=== PATIENT | male | born 1945 | race Caucasian/White ===

== ENCOUNTER → 2019-02-25 | Outpatient (CLI) | payer MEDICARE | END | disposition home or self-care (01) | LOC: LABWHC1 09:02 | PROVIDERS: ATTEND Urology | DX: C61 Malignant neoplasm of prostate (principal) | CPT/HCPCS: 36415; 84153 ==

== ENCOUNTER 2021-09-17 03:27 | Inpatient (IN) | payer MEDICARE ==
[2021-09-17] MEDS ORDERED: IPRATROPIUM-ALBUTEROL 3 ML NEB INHALATION STA (03:58)
--- NOTE | 2021-09-17 04:04 | ED ---
SOB HPI - General Chief Complaint: Shortness of Breath Stated Complaint: Fluid overload, Respiratory Distress Time Seen by Provider: 09/17/21 03:57 Source: EMS Mode of arrival: EMS - Related Data Home Medications Medication Instructions Recorded Confirmed Aspirin EC [Ecotrin] 81 mg PO DAILY 04/11/14 04/11/14 Metoclopramide [Reglan] 10 mg PO BID 04/11/14 04/14/14 Ranitidine HCl [Zantac] 150 mg PO BID 04/11/14 04/14/14 Viagra(Unknown Dose) 1 tab PO DIRECTED 04/11/14 04/11/14 Previous Rx's Medication Instructions Recorded Pantoprazole Sodium [Protonix] 40 mg PO DAILY #30 tablet. 04/14/14 Allergies Allergy/AdvReac Type Severity Reaction Status Date / Time No Known Allergies Allergy Verified 04/11/14 13:56 Review of Systems ROS Statement: Those systems with pertinent positive or pertinent negative responses have been documented in the HPI. ROS Other: All systems not noted in ROS Statement are negative. Past Medical History Past Medical History: Cancer, GERD/Reflux Additional Past Medical History / Comment(s): HX OF PROSTATE CANCER History of Any Multi-Drug Resistant Organisms: None Reported Past Surgical History: Prostate Surgery Past Anesthesia/Blood Transfusion Reactions: No Reported Reaction Past Psychological History: No Psychological Hx Reported Smoking Status: Never smoker Past Alcohol Use History: None Reported Past Drug Use History: None Reported Course Vital Signs 09/17/21 09/17/21 09/17/21 03:32 03:34 03:35 Temperature 99 F Pulse Rate 130 H Respiratory 27 H Rate Blood Pressure 179/111 O2 Sat by Pulse 97 Oximetry Fraction of 100 80 Inspired Oxygen (FIO2) 09/17/21 09/17/21 09/17/21 03:47 04:20 04:29 Temperature Pulse Rate 112 H 112 H Respiratory Rate Blood Pressure O2 Sat by Pulse Oximetry Fraction of 60 Inspired Oxygen (FIO2) 09/17/21 05:01 Temperature Pulse Rate 110 H Respiratory 20 Rate Blood Pressure 126/80 O2 Sat by Pulse 98 Oximetry Fraction of Inspired Oxygen (FIO2) Medical Decision Making - Lab Data Result diagrams: 09/17/21 03:43 09/17/21 03:43 Lab Results 09/17/21 09/17/21 09/17/21 Range/Units 03:43 03:43 03:43 WBC 9.3 (3.8-10.6) k/uL RBC 5.36 (4.30-5.90) m/uL Hgb 18.0 H (13.0-17.5) gm/dL Hct 53.4 H (39.0-53.0) % MCV 99.5 (80.0-100.0) fL MCH 33.6 (25.0-35.0) pg MCHC 33.8 (31.0-37.0) g/dL RDW 13.5 (11.5-15.5) % Plt Count 151 (150-450) k/uL MPV 11.2 Neutrophils % 36 % Lymphocytes % 54 % Monocytes % 5 % Eosinophils % 1 % Basophils % 1 % Neutrophils # 3.4 (1.3-7.7) k/uL Lymphocytes # 5.0 H (1.0-4.8) k/uL Monocytes # 0.4 (0-1.0) k/uL Eosinophils # 0.1 (0-0.7) k/uL Basophils # 0.1 (0-0.2) k/uL Sodium 137 (137-145) mmol/L Potassium 5.1 (3.5-5.1) mmol/L Chloride 106 (98-107) mmol/L Carbon Dioxide 19 L (22-30) mmol/L Anion Gap 12 mmol/L BUN 19 (9-20) mg/dL Creatinine 1.10 (0.66-1.25) mg/dL Est GFR (CKD-EPI)AfAm 75 (>60 ml/min/1.73 sqM) Est GFR (CKD-EPI)NonAf 65 (>60 ml/min/1.73 sqM) Glucose 264 H (74-99) mg/dL Plasma Lactic Acid Chidi 3.2 H* (0.7-2.0) mmol/L Calcium 8.8 (8.4-10.2) mg/dL Total Bilirubin 1.3 (0.2-1.3) mg/dL AST 48 (17-59) U/L ALT 28 (4-49) U/L Alkaline Phosphatase 64 (38-126) U/L Troponin I (0.000-0.034) ng/mL NT-Pro-B Natriuret Pep pg/mL Total Protein 8.3 H (6.3-8.2) g/dL Albumin 4.7 (3.5-5.0) g/dL 09/17/21 09/17/21 Range/Units 03:43 03:43 WBC (3.8-10.6) k/uL RBC (4.30-5.90) m/uL Hgb (13.0-17.5) gm/dL Hct (39.0-53.0) % MCV (80.0-100.0) fL MCH (25.0-35.0) pg MCHC (31.0-37.0) g/dL RDW (11.5-15.5) % Plt Count (150-450) k/uL MPV Neutrophils % % Lymphocytes % % Monocytes % % Eosinophils % % Basophils % % Neutrophils # (1.3-7.7) k/uL Lymphocytes # (1.0-4.8) k/uL Monocytes # (0-1.0) k/uL Eosinophils # (0-0.7) k/uL Basophils # (0-0.2) k/uL Sodium (137-145) mmol/L Potassium (3.5-5.1) mmol/L Chloride (98-107) mmol/L Carbon Dioxide (22-30) mmol/L Anion Gap mmol/L BUN (9-20) mg/dL Creatinine (0.66-1.25) mg/dL Est GFR (CKD-EPI)AfAm (>60 ml/min/1.73 sqM) Est GFR (CKD-EPI)NonAf (>60 ml/min/1.73 sqM) Glucose (74-99) mg/dL Plasma Lactic Acid Chidi (0.7-2.0) mmol/L Calcium (8.4-10.2) mg/dL Total Bilirubin (0.2-1.3) mg/dL AST (17-59) U/L ALT (4-49) U/L Alkaline Phosphatase (38-126) U/L Troponin I 0.025 (0.000-0.034) ng/mL NT-Pro-B Natriuret Pep 667 pg/mL Total Protein (6.3-8.2) g/dL Albumin (3.5-5.0) g/dL - EKG Data -: EKG Interpreted by Me (EKG is sinus tachycardia 132 GA 136 QRS 109 QTC 399) Disposition Clinical Impression: Acute exacerbation of chronic obstructive pulmonary disease, Acute respiratory failure, Acute respiratory distress syndrome in adult, Acute pulmonary edema, Congestive heart failure, Hypoxia Disposition: ADMITTED IP TO THIS HOSP Condition: Serious Is patient prescribed a controlled substance at d/c from ED?: No Referrals: None,Stated [REFERRING] - 1-2 days
[2021-09-17 04:11] LABS: Calcium 8.8 mg/dL (8.4-10.2)
[2021-09-17 04:16] LABS: Potassium 5.1 mmol/L (3.5-5.1); Total Protein 8.3 g/dL (6.3-8.2)
[2021-09-17 04:17] LABS: Albumin 4.7 g/dL (3.5-5.0); Total Bilirubin 1.3 mg/dL (0.2-1.3)
[2021-09-17 04:23] LABS: Basophils # (A) 0.1 k/uL (0-0.2); Basophils % (A) 1 %; Eosinophils # (A) 0.1 k/uL (0-0.7); Eosinophils % (A) 1 %; HCT 53.4 % (39.0-53.0); Lymphocytes % (A) 54 %; MCH 33.6 pg (25.0-35.0); MCHC 33.8 g/dL (31.0-37.0); MCV 99.5 fL (80.0-100.0); Mean Platelet Volume 11.2; Monocytes # (A) 0.4 k/uL (0-1.0); Monocytes % (A) 5 %; Neutrophils # (A) 3.4 k/uL (1.3-7.7); Neutrophils % (A) 36 %; Platelet Count 151 k/uL (150-450); RBC 5.36 m/uL (4.30-5.90); RDW 13.5 % (11.5-15.5); WBC 9.3 k/uL (3.8-10.6)
--- NOTE | 2021-09-17 04:42 | XR ---
EXAMINATION TYPE: XR chest 1V portable DATE OF EXAM: 09/17/2021 COMPARISON: NONE HISTORY: Short of breath TECHNIQUE: Renal view FINDINGS: Heart is enlarged. There is moderate pulmonary airspace edema. No definite pleural effusion . There are chest leads. Bony thorax is intact. IMPRESSION: There is moderate pulmonary airspace edema which could be RDS or acute heart failure.
[2021-09-17] MEDS ORDERED: ASPIRIN 325 MG TAB PO STA (05:03)
[2021-09-17] MEDS ORDERED: FUROSEMIDE 10 MG/ML 4 ML VIAL IV SCH (05:15)
[2021-09-17 05:19] LABS: Magnesium 1.8 mg/dL (1.6-2.3); Phosphorus 6.6 mg/dL (2.5-4.5)
[2021-09-17] MEDS ORDERED: IPRATROPIUM-ALBUTEROL 3 ML NEB INHALATION PRN (07:00)
--- NOTE | 2021-09-17 07:02 | P.HPIM ---
History of Present Illness H&P Date: 09/17/21 The patient is a 76-year-old male with no known PMH who presented to the emergency room with complaints of sudden onset of shortness of breath. The patient is a Persian speaker with his son at the bedside serving as an customer assistance associate. Patient reports that he was sleeping soundly and was woken up sudd enly at around midnight with shortness of breath, which gradually worsened over the next hour or 2. Patient reports developing diaphoresis and shortness of breath. Denied experiencing chest discomfort, palpitations, nausea, dizziness. Denied any prior history of such symptoms. Denied a history of CHF or COPD. Reported feeling better shortly after arrival to the emergency room and now feels significantly improved albeit not at his baseline as of yet. Denied experiencing cough, fever, chills, abdominal pain, diarrhea. Reports following up with his PMD on a regular basis every 6 months to a year. EKG in the emergency room reveals sinus tachycardia at 132 bpm with a poor baseline. Chest x-ray revealed pulmonary edema. Laboratory evaluation was remarkable for a proBNP of 666, troponin 0.025, lactic acid 3.2, glucose 264, and CO2 19. Patient was tachycardic and tachypneic upon arrival to the emergency room with BP 179/111, respiratory rate 27, pulse 130, SpO2 97% on room air, and temp 99F. The patient's SpO2 acutely dropped after arrival to 60% requiring BiPAP. At time of evaluation, the patient had been transitioned to nasal cannula oxygen. Review of systems: Pertinent positives and negatives as discussed in HPI, a complete review of systems was performed and all other systems are negative. Physical examination: General: non toxic, no distress, appears at stated age, obese Derm: no unusual rashes/lesions, warm Head: atraumatic, normocephalic, symmetric Eyes: EOMI, no lid lag, anicteric sclera, pupils equal round reactive to light ENT: Nose and ears atraumatic Neck: No cervical lymphadenopathy, trachea midline, supple Mouth: no lip lesion, mucus membranes moist Cardiovascular: S1S2 reg, no murmur, positive dorsalis pedis pulse bilateral, no edema Lungs: Bilateral rales to mid lung sher, no accessory muscle use Abdominal: soft, nontender to palpation, no guarding Ext: muscle strength 5 out of 5 in all 4 extremities grossly, no gross muscle atrophy, no contractures, Neuro: CN II-XI grossly intact, no gross focal neuro deficits Psych: Alert, oriented, appropriate affect Assessment/plan Acute hypoxic respiratory failure, suspected secondary to CHF exacerbation newly diagnosed -Obtain echocardiogram -Continue with Lasix -Cardiac monitoring -Cardiology consult -Monitor electrolytes daily Lactic acidosis -Monitor for resolution Hyperglycemia -Check A1c DVT prophylaxis -Heparin subcu The patient is admitted with an anticipated greater than 2 midnight stay for evaluation of CHF exacerbation. CODE STATUS: Full Code Discussed with: Patient Anticipated discharge date: 09/[address]: Home Past Medical History Past Medical History: Cancer, GERD/Reflux Additional Past Medical History / Comment(s): HX OF PROSTATE CANCER History of Any Multi-Drug Resistant Organisms: None Reported Past Surgical History: Prostate Surgery Past Anesthesia/Blood Transfusion Reactions: No Reported Reaction Past Psychological History: No Psychological Hx Reported Smoking Status: Never smoker Past Alcohol Use History: None Reported Past Drug Use History: None Reported - Past Family History Mother Family Medical History: Hypertension Medications and Allergies Home Medications Medication Instructions Recorded Confirmed Type Aspirin EC [Ecotrin] 81 mg PO DAILY 04/11/14 04/11/14 History Metoclopramide [Reglan] 10 mg PO BID 04/11/14 04/14/14 History Ranitidine HCl [Zantac] 150 mg PO BID 04/11/14 04/14/14 History Viagra(Unknown Dose) 1 tab PO DIRECTED 04/11/14 04/11/14 History Pantoprazole Sodium [Protonix] 40 mg PO DAILY #30 tablet. 04/14/14 Rx Allergies Allergy/AdvReac Type Severity Reaction Status Date / Time No Known Allergies Allergy Verified 04/11/14 13:56 Physical Exam Vitals: Vital Signs Temp Pulse Resp BP Pulse Ox FiO2 09/17/21 05:01 110 H 20 126/80 98 09/17/21 04:29 112 H 09/17/21 04:20 112 H 09/17/21 03:47 60 09/17/21 03:35 99 F 130 H 27 H 179/111 97 09/17/21 03:34 80 09/17/21 03:32 100 Intake and Output 09/16/21 09/16/21 09/17/21 14:59 22:59 06:59 Other: Weight 90.718 kg Results CBC & Chem 7: 09/17/21 03:43 07/18/22 03:43 Labs: Abnormal Lab Results - Last 24 Hours (Table) 09/17/21 09/17/21 09/17/21 Range/Units 03:43 03:43 03:43 Hgb 18.0 H (13.0-17.5) gm/dL Hct 53.4 H (39.0-53.0) % Lymphocytes # 5.0 H (1.0-4.8) k/uL Carbon Dioxide 19 L (22-30) mmol/L Glucose 264 H (74-99) mg/dL Plasma Lactic Acid Chidi 3.2 H* (0.7-2.0) mmol/L Phosphorus (2.5-4.5) mg/dL Total Protein 8.3 H (6.3-8.2) g/dL 09/17/21 Range/Units 04:06 Hgb (13.0-17.5) gm/dL Hct (39.0-53.0) % Lymphocytes # (1.0-4.8) k/uL Carbon Dioxide (22-30) mmol/L Glucose (74-99) mg/dL Plasma Lactic Acid Chidi (0.7-2.0) mmol/L Phosphorus 6.6 H (2.5-4.5) mg/dL Total Protein (6.3-8.2) g/dL
[2021-09-17] MEDS ORDERED: HEPARIN SODIUM,PORCINE/PF 5,000 UNIT/0.5 ML SYRINGE SQ SCH (08:00)
[2021-09-17] MEDS ORDERED: IPRATROPIUM-ALBUTEROL 3 ML NEB INHALATION SCH (08:00)
[2021-09-17] MEDS: IPRATROPIUM-ALBUTEROL 3 ML NEB INHALATION SCH ×4 (08:07→21:10)
[2021-09-17] MEDS ORDERED: HEPARIN SODIUM 1,000 UN/ML (10ML VL) IV PRN (10:25)
[2021-09-17] MEDS ORDERED: HEPARIN SODIUM 1,000 UN/ML (10ML VL) IV ONE (10:25)
[2021-09-17 10:57] LABS: Basophils % (A) 0 %; Eosinophils % (A) 0 %; HCT 53.1 % (39.0-53.0); Lymphocytes # (A) 0.6 k/uL (1.0-4.8); Lymphocytes % (A) 8 %; MCH 32.1 pg (25.0-35.0); MCHC 32.1 g/dL (31.0-37.0); MCV 100.2 fL (80.0-100.0); Mean Platelet Volume 8.5; Monocytes # (A) 0.1 k/uL (0-1.0); Monocytes % (A) 1 %; Neutrophils # (A) 6.8 k/uL (1.3-7.7); Neutrophils % (A) 89 %; Platelet Count 170 k/uL (150-450); RDW 12.8 % (11.5-15.5); WBC 7.7 k/uL (3.8-10.6)
[2021-09-17 11:12] LABS: INR 1.1 (<1.2); Prothrombin Time 11.6 sec (9.0-12.0)
[2021-09-17 11:15] LABS: Partial Thromboplastin Time 21.4 sec (22.0-30.0)
[2021-09-17] MEDS: HEPARIN SOD,PORK IN 0.45% NACL 25,000 UNIT in 0.45% NACL 1 250ML.BAG IV SCH (11:19)
[2021-09-17] MEDS: LOSARTAN 25 MG TAB PO SCH (11:20)
[2021-09-17] MEDS: carvediloL 3.125 MG TAB PO SCH ×2 (11:20→18:00)
[2021-09-17] MEDS ORDERED: NITROGLYCERIN SL TABS 0.4 MG TAB SUBLINGUAL PRN (11:59)
[2021-09-17] MEDS ORDERED: ALPRAZolam 0.5 MG TAB PO PRN (11:59)
[2021-09-17] MEDS ORDERED: ALPRAZolam 0.25 MG TAB PO PRN (11:59)
[2021-09-17 12:57] LABS: Glucose,Whole Blood 221 mg/dL (70-110)
--- NOTE | 2021-09-17 12:59 | P.CRDCN ---
History of Present Illness History of present illness: HISTORY OF PRESENT ILLNESS: This is a 76-year-old male with no signifcant past medical history. Patient does not follow with a service and repair supervisor. We have been asked to see the patient in consultation for CHF. Patient examined at the bedside. Patient speaks Egyptian. His family is at the bedside translating for the patient. Patient apparently woke up at 11pm last night with shortness of breath, cough, and diaphoresis. The patient apparently tried to drink some water and relax but his symptoms got worse so he called EMS. The patient was started on IV lasix. He states his symptoms are improved at the time of examination. He currently denies chest pain or pressure. * EKG reveals sinus tachycardia with no signs of acute ischemia * Chest xray moderate pulmonary airspace edema which could be RDS or acute heart failure * Laboratory data: WBC 7.7. Hemoglobin 17. Platelet count 170. Sodium 137. Potassium 5.1. BUN 19. Creatinine 1.10. Lactic acid 4.2. Repeat 5.3. Troponin 0.025. 0.283. 0.574. * Current home cardiac medications include aspirin 81 mg daily REVIEW OF SYSTEMS: At the time of my exam: CONSTITUTIONAL: Denies fever or chills. HEENT: Denies blurred vision, vision changes, or eye pain. Denies hemoptysis CARDIOVASCULAR: Denies chest pain. Denies orthopnea. Denies PND. Denies palpitations RESPIRATORY: Denies shortness of breath. GASTROINTESTINAL: Denies abdominal pain. Denies nausea or vomiting. HEMATOLOGIC: Denies bleeding disorders. GENITOURINARY: Denies any blood in urine. SKIN: Denies pruitis. Denies rash. PHYSICAL EXAM: VITAL SIGNS: Reviewed. GENERAL: Well-developed in no acute distress. HEENT: Head is normocephalic. Pupils are equal, round. Sclerae anicteric. Mucous membranes of the mouth are moist. Neck supple. No JVD or thyromegaly LUNGS: Respirations even and unlabored. Lungs diminished to auscultation bilaterally. HEART: Regular rate and rhythm. S1 and S2 heard. ABDOMEN: Soft. Nondistended. Nontender. EXTREMITIES: Normal range of motion. No clubbing or cyanosis. Peripheral pulses intact. No lower extremity edema NEUROLOGIC: Awake and alert. Oriented x 3. ASSESSMENT: Non-STEMI Acute heart failure, type unknown, echo pending Lactic acidosis Hyperglycemia, rule out diabetes Former nicotine dependence PLAN: Obtain 2D echo to assess cardiac structure and function Continue IV lasix. Decrease dosing to Q12 hours Add aspirin 81 mg daily Add atorvastatin 80 mg at night Add carvedilol 3.125 mg twice a day Add losartan 25 mg daily Begin IV heparin Patient to undergo cardiac cath tomorrow with Dr. Mitchell Further recommendations pending patient course Nurse practitioner note has been reviewed by physician. Signing provider agrees with the documented findings, assessment, and plan of care. Past Medical History Past Medical History: Cancer, GERD/Reflux Additional Past Medical History / Comment(s): HX OF PROSTATE CANCER History of Any Multi-Drug Resistant Organisms: None Reported Past Surgical History: Prostate Surgery Past Anesthesia/Blood Transfusion Reactions: No Reported Reaction Past Psychological History: No Psychological Hx Reported Smoking Status: Never smoker Past Alcohol Use History: None Reported Past Drug Use History: None Reported - Past Family History Mother Family Medical History: Hypertension Medications and Allergies Home Medications Medication Instructions Recorded Confirmed Type Aspirin EC [Ecotrin] 81 mg PO DAILY 04/11/14 09/17/21 History Allergies Allergy/AdvReac Type Severity Reaction Status Date / Time No Known Allergies Allergy Verified 09/17/21 07:29 Physical Exam Vitals: Vital Signs Temp Pulse Resp BP Pulse Ox FiO2 09/17/21 08:19 105 H 09/17/21 08:07 105 H 09/17/21 07:33 92 L 09/17/21 07:15 103 H 20 142/84 95 09/17/21 05:01 110 H 20 126/80 98 09/17/21 04:29 112 H 09/17/21 04:20 112 H 09/17/21 03:47 60 09/17/21 03:35 99 F 130 H 27 H 179/111 97 09/17/21 03:34 80 09/17/21 03:32 100 Intake and Output 09/16/21 09/17/21 09/17/21 22:59 06:59 14:59 Other: Weight 90.718 kg Results 09/17/21 10:38 09/17/21 03:43 Cardiac Enzymes 09/17/21 09/17/21 09/17/21 Range/Units 03:43 03:43 06:36 AST 48 (17-59) U/L Troponin I 0.025 0.283 H* (0.000-0.034) ng/mL CBC 09/17/21 Range/Units 03:43 WBC 9.3 (3.8-10.6) k/uL RBC 5.36 (4.30-5.90) m/uL Hgb 18.0 H (13.0-17.5) gm/dL Hct 53.4 H (39.0-53.0) % Plt Count 151 (150-450) k/uL Comprehensive Metabolic Panel 09/17/21 Range/Units 03:43 Sodium 137 (137-145) mmol/L Potassium 5.1 (3.5-5.1) mmol/L Chloride 106 (98-107) mmol/L Carbon Dioxide 19 L (22-30) mmol/L BUN 19 (9-20) mg/dL Creatinine 1.10 (0.66-1.25) mg/dL Glucose 264 H (74-99) mg/dL Calcium 8.8 (8.4-10.2) mg/dL AST 48 (17-59) U/L ALT 28 (4-49) U/L Alkaline Phosphatase 64 (38-126) U/L Total Protein 8.3 H (6.3-8.2) g/dL Albumin 4.7 (3.5-5.0) g/dL Current Medications Generic Name Dose Route Start Last Admin Trade Name Freq PRN Reason Stop Dose Admin Albuterol/Ipratropium 3 ml 09/17/21 07:00 Ipratropium-Albuterol 3 Ml Neb INHALATION RT-QID PRN Shortness Of Breath Or Wheezing Albuterol/Ipratropium 3 ml 09/17/21 08:00 09/17/21 08:07 Ipratropium-Albuterol 3 Ml Neb INHALATION 3 ml RT-QID CAROL Administration Aspirin 325 mg 09/18/21 12:00 Aspirin 325 Mg Tab PO DAILY CAROL Furosemide 40 mg 09/17/21 05:15 09/17/21 07:10 Furosemide 10 Mg/Ml 4 Ml Vial IV 40 mg Q8H CAROL Administration Heparin Sodium (Porcine) 5,000 unit 09/17/21 08:00 09/17/21 08:55 Heparin Sodium,Porcine/Pf 5,000 Unit/0.5 Ml Syringe SQ Not Given Q8HR CAROL Intake and Output 07/09/17/21 09/17/21 22:59 06:59 14:59 Other: Weight 90.718 kg 09/17/21 03:43 09/17/21 03:43
[2021-09-17 19:19] LABS: Chol/HDL Ratio 5.38 Ratio; LDL Cholesterol,Calculated 146.9 mg/dL (0.0-131.0)
[2021-09-17] MEDS: ATORVASTATIN 80 MG TAB PO SCH (21:02)
[2021-09-17] MEDS: FUROSEMIDE 10 MG/ML 4 ML VIAL IV SCH (21:02)
[2021-09-17] MEDS: SODIUM CHLORIDE 0.9% 1,000 ML in EMPTY BAG 1 BAG IV SCH (21:46)
[2021-09-17 23:50] VITALS: RESP 16
[2021-09-18 03:27] LABS: Basophils % (A) 0 %; Eosinophils # (A) 0.1 k/uL (0-0.7); Eosinophils % (A) 1 %; HCT 46.6 % (39.0-53.0); Lymphocytes # (A) 1.7 k/uL (1.0-4.8); Lymphocytes % (A) 13 %; MCH 31.5 pg (25.0-35.0); MCHC 32.1 g/dL (31.0-37.0); MCV 98.3 fL (80.0-100.0); Mean Platelet Volume 8.3; Monocytes # (A) 0.8 k/uL (0-1.0); Monocytes % (A) 6 %; Neutrophils # (A) 10.3 k/uL (1.3-7.7); Neutrophils % (A) 79 %; Platelet Count 166 k/uL (150-450); RBC 4.74 m/uL (4.30-5.90); RDW 13.1 % (11.5-15.5); WBC 13.1 k/uL (3.8-10.6)
[2021-09-18] MEDS ORDERED: ASPIRIN 325 MG TAB PO ONE (05:00)
[2021-09-18] MEDS ORDERED: ATORVASTATIN 80 MG TAB PO ONE (05:00)
[2021-09-18] MEDS: carvediloL 3.125 MG TAB PO SCH ×2 (06:30→16:55)
[2021-09-18] MEDS: SODIUM CHLORIDE 0.9% 1,000 ML in EMPTY BAG 1 BAG IV SCH (06:35)
[2021-09-18] MEDS ORDERED: HEPARIN SODIUM,PORCINE 10,000 UNIT in SODIUM CHLORIDE 0.9% 1,000 ML IRRIGATION PRN (07:00)
[2021-09-18] MEDS ORDERED: HEPARIN SODIUM,PORCINE 2,500 UNIT in SODIUM CHLORIDE 0.9% 250 ML IRRIGATION PRN (07:00)
[2021-09-18] MEDS: IPRATROPIUM-ALBUTEROL 3 ML NEB INHALATION SCH ×4 (07:50→19:56)
--- NOTE | 2021-09-18 08:10 | CA ---
Transthoracic Echo Report Name: Tashi Salinas Age: 76 Gender: M : 1945 Exam Date: 09/17/2021 10:15 Exam Location: [facility] Ht (in): 65 Wt (lb): 200 Ordering Physician: Gage Mahoney DO Attending/Referring Phys: [id number], Maru Digital Account Supervisor Vita Bailey, [facility] Procedure CPT: Indications: Heart failure Cardiac Hx: Technical Quality: Good Contrast 1: Total Dose (mL): Contrast 2: Total Dose (mL): MEASUREMENTS (Male / Female) Normal Values 2D ECHO LV Diastolic Diameter PLAX 6.4 cm 4.2 - 5.9 / 3.9 - 5.3 cm LV Systolic Diameter PLAX 4.9 cm IVS Diastolic Thickness 1.2 cm 0.6 - 1.0 / 0.6 - 0.9 cm LVPW Diastolic Thickness 1.1 cm 0.6 - 1.0 / 0.6 - 0.9 cm LV Relative Wall Thickness 0.4 RV Internal Dim ED PLAX 3.0 cm LA Systolic Diameter LX 3.7 cm 3.0 - 4.0 / 2.7 - 3.8 cm LA Volume 59.3 cm??? 18 - 58 / 22 - 52 cm??? M-MODE Aortic Root Diameter MM 3.2 cm MV E Point Septal Separation 3.4 cm AV Cusp Separation MM 2.2 cm DOPPLER AV Peak Velocity 134.5 cm/s AV Peak Gradient 7.2 mmHg MV Area PHT 5.0 cm??? Mitral E Point Velocity 89.0 cm/s Mitral A Point Velocity 118.1 cm/s Mitral E to A Ratio 0.8 MV Deceleration Time 151.5 ms MV E' Velocity 4.7 cm/s Mitral E to MV E' Ratio 19.0 FINDINGS Left Ventricle Mildly increased septal wall thickness. Moderately increased left ventricular diastolic diameter. Left ventricular ejection fraction is estimated at 20-25 %. Severely reduced global left ventricular systolic function. Right Ventricle Normal right ventricular size and function. Unable to estimate the right ventricular systolic pressure. Right Atrium Normal right atrial size. Left Atrium Mildly increased left atrial volume. No evidence for an atrial septal defect. Mitral Valve Mild mitral regurgitation. No mitral stenosis. No evidence for mitral valve prolapse. Aortic Valve Trileaflet aortic valve. No aortic valve stenosis or regurgitation. Tricuspid Valve Structurally normal tricuspid valve. No tricuspid stenosis, regurgitation or prolapse. Pulmonic Valve Trace pulmonic regurgitation. Pericardium Normal pericardium. No pericardial effusion. Aorta Normal size aortic root and proximal ascending aorta. CONCLUSIONS Left ventricular ejection fraction 20-25% Global hypokinesis Mild mitral regurgitation No pericardial effusion Previewed by: Dr. Shree Olsen DO (Electronically Signed) Final Date: 18 September 2021 08:09
[2021-09-18] MEDS ORDERED: VERAPAMIL 2.5 MG/ML 2 ML AMP ONE (08:25)
[2021-09-18] MEDS ORDERED: IV FLUID CONTINUATION 1,000 ML IV ONE (08:31)
[2021-09-18] MEDS ORDERED: MIDAZOLAM 2 MG/2 ML VIAL IV ONE (09:02)
[2021-09-18] MEDS ORDERED: fentaNYL (PF) 50 MCG/ML 2 ML AMP IV ONE (09:02)
[2021-09-18] MEDS ORDERED: LIDOCAINE 1% INJ 10MG/ML (5 ML VIAL-PF) SQ ONE (09:04)
[2021-09-18] MEDS ORDERED: VERAPAMIL SYRINGE (5 MG/10 ML) INTRAARTER ONE (09:07)
[2021-09-18] MEDS ORDERED: HEPARIN SODIUM 1,000 UN/ML (10ML VL) IV ONE (09:10)
[2021-09-18] MEDS ORDERED: IOPAMIDOL-370 125ML BTL INJ ONE (09:21)
[2021-09-18] MEDS: HEPARIN SOD,PORK IN 0.45% NACL 25,000 UNIT in 0.45% NACL 1 250ML.BAG IV SCH (11:01)
[2021-09-18] MEDS ORDERED: ASPIRIN 325 MG TAB PO SCH (12:00)
[2021-09-18] MEDS: FUROSEMIDE 10 MG/ML 4 ML VIAL IV SCH (12:14)
[2021-09-18] MEDS: LOSARTAN 25 MG TAB PO SCH (12:17)
[2021-09-18] MEDS: FUROSEMIDE 40 MG TAB PO SCH ×2 (12:17→16:55)
--- NOTE | 2021-09-18 14:22 | P.PN ---
Subjective Progress Note Date: 09/18/21 (delayed charting seen at 1130) Patient is a 76-year-old male with no known past medical history who presented to the emergency room with sudden onset shortness of breath. In the ER he underwent an extensive evaluation. He was found to be tachycardic with heart rate of 132, chest x-ray revealed pulmonary edema. Laboratory analysis showed a BNP of 666, troponin 0.025, lactic acid 3.2, glucose 264, and CO2 of 19. In the ER he was extremely hypertensive with a blood pressure of 179/111. His O2 dropped after admission to 60% and he required BiPAP. He was admitted for further management of possible new onset CHF. He was started on Lasix. Cardiology was consulted. An echocardiogram performed which showed an ejection fraction 20-25%. 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 Patient seen and examined at bedside with son present. I did offer use manager infrastructure services but the son declined and wished to interpret for his father. He denies any chest pain or shortness of breath at this time. We had a rather lengthy discussion about congestive heart failure and his sodium and fluid restrictions and she will need to abide by on discharge. We discussed different medications and the need for active follow-up with a fountain supervisor. He does follow with Dr. Goodrich on a regular basis. General: nontoxic, no distress, appears at stated age Derm: warm, dry Head: atraumatic, normocephalic, symmetric Eyes: EOMI, no lid lag, anicteric sclera Mouth: no lip lesion, mucus membranes moist Cardiovascular: S1S2 reg, no murmur, positive posterior tibial pulse bilateral, Lungs: CTA bilateral, no rhonchi, no rales , no accessory muscle use Abdominal: soft, nontender to palpation, no guarding, no appreciable organomegaly Ext: no gross muscle atrophy, trace edema, no contractures Neuro: CN II-XI grossly intact, no focal neuro deficits Psych: Alert, oriented, appropriate affect Assessment/plan: Acute exacerbation of systolic congestive heart failure, ejection fraction 20- 25% Type II non-STEMI related to acute CHF Coronary artery disease no need for intervention on cath -Continue with Lasix -Continue with Cozaar and Coreg -Cardiology recommendations -Strict I's and O's, daily weight Prediabetes with hyperglycemia A1c 6.2 -We'll check coverage for Giardia given his new onset systolic congestive heart failure -Continue a sliding scale -Patient will need glucometer and supplies on discharge Dyslipidemia -Statin Likely home in the next 24-48 hours. Objective - Vital Signs Vital signs: Vital Signs Temp 98.6 F 09/18/21 04:00 Pulse 73 09/18/21 14:00 Resp 16 09/18/21 14:00 BP 115/47 09/18/21 14:00 Pulse Ox 94 L 09/18/21 14:00 FiO2 60 09/17/21 03:47 Intake & Output 09/17/21 09/18/21 09/18/21 18:59 06:59 18:59 Intake Total 66.167 341.860 125 Output Total 875 Balance 66.167 -533.140 125 Weight 90.718 kg 86.6 kg Intake: IV 125 Intake, IV Titration 66.167 341.860 Amount Heparin Sod,Pork in 0.45% 66.167 159.860 NaCl 25,000 unit In 0.45 % NaCl 1 250ml.bag @ 11. 023 UNITS/KG/HR 10 mls/hr IV .Q24H CAROL Rx#: [id number] Sodium Chloride 0.9% 1, 182 000 ml In Empty Bag 1 bag @ 1 ML/KG/HR 90.718 mls/ hr IV .Q11H2M CAROL Rx#: [id number] Output: Urine 875 Other: Voiding Method Bedside Commode Toilet Urinal # Voids 1 - Labs CBC & Chem 7: 09/18/21 03:08 09/17/21 03:43 Labs: Abnormal Lab Results - Last 24 Hours (Table) 09/17/21 09/17/21 09/17/21 Range/Units 10:38 13:48 16:18 WBC (3.8-10.6) k/uL Neutrophils # (1.3-7.7) k/uL APTT 32.7 H (22.0-30.0) sec Hemoglobin A1c (0.0-6.0) % Plasma Lactic Acid Chidi 5.7 H* (0.7-2.0) mmol/L Triglycerides 157.00 H (0.00-149.00) mg/dL Cholesterol 219.00 H (0.00-200.00) mg/dL LDL Cholesterol, Calc 146.9 H (0.0-131.0) mg/dL 09/17/21 09/17/21 09/17/21 Range/Units 16:18 19:46 23:19 WBC (3.8-10.6) k/uL Neutrophils # (1.3-7.7) k/uL APTT 55.7 H (22.0-30.0) sec Hemoglobin A1c (0.0-6.0) % Plasma Lactic Acid Chidi 4.3 H* 4.4 H* (0.7-2.0) mmol/L Triglycerides (0.00-149.00) mg/dL Cholesterol (0.00-200.00) mg/dL LDL Cholesterol, Calc (0.0-131.0) mg/dL 09/17/21 09/18/21 09/18/21 Range/Units 23:19 03:08 03:08 WBC 13.1 H (3.8-10.6) k/uL Neutrophils # 10.3 H (1.3-7.7) k/uL APTT (22.0-30.0) sec Hemoglobin A1c 6.4 H (0.0-6.0) % Plasma Lactic Acid Chidi 3.5 H* (0.7-2.0) mmol/L Triglycerides (0.00-149.00) mg/dL Cholesterol (0.00-200.00) mg/dL LDL Cholesterol, Calc (0.0-131.0) mg/dL 09/18/21 09/18/21 Range/Units 03:08 08:07 WBC (3.8-10.6) k/uL Neutrophils # (1.3-7.7) k/uL APTT (22.0-30.0) sec Hemoglobin A1c (0.0-6.0) % Plasma Lactic Acid Chidi 2.6 H* 2.3 H* (0.7-2.0) mmol/L Triglycerides (0.00-149.00) mg/dL Cholesterol (0.00-200.00) mg/dL LDL Cholesterol, Calc (0.0-131.0) mg/dL
--- NOTE | 2021-09-18 18:40 | CC ---
CARDIAC CATHETERIZATION REPORT INDICATION: Acute ceh-UC-xceuxat-elevation [place]. PROCEDURE NOTE: After obtaining informed consent, left heart catheterization and coronary angiogram were performed via the right radial artery using size 3.5 Ghada right and left catheters and a pigtail catheter. The patient tolerated the procedure well without any obvious immediate complications. He received moderate conscious sedation. Total sedation time was 21 minutes. With a micropuncture needle using Seldinger technique, right radial artery access was obtained and under fluoroscopic guidance catheters and wires were floated into the ascending aorta, where they were exchanged. The patient received 5 mg of verapamil and units of intravenous heparin per protocol. At the end of the procedures a TR band was used for hemostasis. FINDINGS: HEMODYNAMICS: Left ventricular end-diastolic pressure is 12 mm. There is no significant gradient across the aortic valve. LEFT VENTRICULOGRAM: Left ventriculogram was not performed. ANGIOGRAPHIC DATA: Right coronary artery appears chronically occluded in its proximal portion with extensive collaterals coming from the left coronary artery. Left main coronary artery is a normal-sized vessel and is free of stenosis. It divides into left anterior descending coronary artery and circumflex coronary artery. LAD and its branches, circumflex coronary artery and its branches are free of significant stenosis. 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 PLAN: I reviewed angiographic data with the patient and his family members. The patient will treated with adequate medical therapy. [email or web address] / IJN: [id number] /
[2021-09-18] MEDS: ATORVASTATIN 80 MG TAB PO SCH (19:50)
[2021-09-19] MEDS: carvediloL 3.125 MG TAB PO SCH (06:37)
[2021-09-19] MEDS: IPRATROPIUM-ALBUTEROL 3 ML NEB INHALATION SCH ×2 (07:28→10:26)
[2021-09-19 08:00] LABS: HCT 50.8 % (39.0-53.0); HGB 16.5 gm/dL (13.0-17.5); MCH 32.2 pg (25.0-35.0); MCHC 32.5 g/dL (31.0-37.0); MCV 98.8 fL (80.0-100.0); Mean Platelet Volume 8.1; Platelet Count 170 k/uL (150-450); RBC 5.15 m/uL (4.30-5.90); RDW 13.2 % (11.5-15.5); WBC 8.9 k/uL (3.8-10.6)
[2021-09-19] MEDS: LOSARTAN 25 MG TAB PO SCH (08:22)
[2021-09-19] MEDS: FUROSEMIDE 40 MG TAB PO SCH (08:22)
[2021-09-19 08:24] LABS: Calcium 9.1 mg/dL (8.4-10.2); Magnesium 1.8 mg/dL (1.6-2.3); Phosphorus 3.8 mg/dL (2.5-4.5); Potassium 4.6 mmol/L (3.5-5.1)
[2021-09-19] MEDS ORDERED: ASPIRIN 81 MG PO SCH (09:00)
[2021-09-19 09:42] VITALS: BP 121/69; TEMP 97.4
[2021-09-19] MEDS ORDERED: carvediloL 3.125 MG TAB PO STA (10:10)
[2021-09-19 10:36] VITALS: PULSE 91
--- NOTE | 2021-09-19 11:19 | P.DS ---
Providers Date of admission: 09/17/21 05:03 Expected date of discharge: 09/19/21 Attending physician: Amilcar Barnes MD Consults: 09/17/21 05:03 Consult Physician Routine Consulting Provider: Crow Giordano Consult Reason/Comments: HTNemerg,CHFnew Do you want consulting provider notified?: Yes Primary care physician: Ben Goodrich MD Hospital Course: Discharge Diagnosis: Acute exacerbation of systolic congestive heart failure, ejection fraction 20- 25% Type II non-STEMI related to acute CHF Hypertensive urgency Coronary artery disease no need for intervention on cath Prediabetes with hyperglycemia A1c 6.4 Dyslipidemia Hospital Course: Patient is a 76-year-old male with no known past medical history who presented to the emergency room with sudden onset shortness of breath. In the ER he underwent an extensive evaluation. He was found to be tachycardic with heart rate of 132, chest x-ray revealed pulmonary edema. Laboratory analysis showed a BNP of 666, troponin 0.025, lactic acid 3.2, glucose 264, and CO2 of 19. In the ER he was extremely hypertensive with a blood pressure of 179/111. His O2 dropp ed after admission to 60% and he required BiPAP. He was admitted for further management of possible new onset CHF. He was started on Lasix. Cardiology was consulted. An echocardiogram performed which showed an ejection fraction 20- 25%. 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 He continued to do well. We attempted to get him Jardiance due to his prediabetes and CHF but cost was over $200/ month. He was determined stable for discharge home. Follow-up: Cardiology and 2 weeks, Dr. Goodrich in 1-2 days, take medications as prescribed, lab work in 2 days, Home health. Patient seen and examined at bedside. Son wanted to translate though I offered to use interperter services. No chest pain or shortness of breath. She had a long discussion about what his heart failure means, need for follow-up, and dietary restrictions. Vital signs reviewed and stable. General: nontoxic, no distress, appears at stated age Derm: warm, dry Head: atraumatic, normocephalic, symmetric Eyes: EOMI, no lid lag, anicteric sclera Mouth: no lip lesion, mucus membranes moist Cardiovascular: S1S2 reg, no murmur, positive posterior tibial pulse bilateral, Lungs: CTA bilateral, no rhonchi, no rales , no accessory muscle use Abdominal: soft, nontender to palpation, no guarding, no appreciable organomegaly Ext: no gross muscle atrophy, trace edema, no contractures Neuro: CN II-XI grossly intact, no focal neuro deficits Psych: Alert, oriented, appropriate affect A total of 35 minutes of time were spent preparing this complex discharge summary. Patient was discharged on 09/19/21. Patient Condition at Discharge: Stable Plan - Discharge Summary Discharge Rx Participant: No New Discharge Prescriptions: New carvediloL [Coreg] 6.25 mg PO BID #120 tablet Losartan [Cozaar] 25 mg PO DAILY #30 tab Potassium Chloride ER [K-Dur 20] 20 meq PO DAILY #30 tab Furosemide [Lasix] 40 mg PO BID@0900,1600 #60 tab Atorvastatin [Lipitor] 80 mg PO HS #30 tab metFORMIN HCL [Glucophage] 500 mg PO BID #60 tab Continue Aspirin EC [Ecotrin Low Dose] 81 mg PO DAILY Discharge Medication List Aspirin EC [Ecotrin Low Dose] 81 mg PO DAILY 04/11/14 [History] Atorvastatin [Lipitor] 80 mg PO HS #30 tab 09/19/21 [Rx] Furosemide [Lasix] 40 mg PO BID@0900,1600 #60 tab 09/19/21 [Rx] Losartan [Cozaar] 25 mg PO DAILY #30 tab 09/19/21 [Rx] Potassium Chloride ER [K-Dur 20] 20 meq PO DAILY #30 tab 09/19/21 [Rx] carvediloL [Coreg] 6.25 mg PO BID #120 tablet 09/19/21 [Rx] metFORMIN HCL [Glucophage] 500 mg PO BID #60 tab 09/19/21 [Rx] Follow up Appointment(s)/Referral(s): Rafa Beatty MD [STAFF PHYSICIAN] - 2 Weeks Ben Goodrich MD [Primary Care Provider] - 1-2 Days [facility] Visiting Nurse, [NON-STAFF] - 1 Week Ambulatory/Diagnostic Orders: Basic Metabolic Panel [LAB.AMB] Time Frame: 3 Days, Location: None Selected Patient Instructions/Handouts: Heart Failure (DC), Low-Sodium Diet (DC), Heart Catheterization (DC) Activity/Diet/Wound Care/Special Instructions: Activity: as tolerated, see precautions for cath Diet: Heart health, 2 gram sodium, 1500 cc fluid restriction Special Instructions: monitor weights daily Stop and rest if heart rate is elevated Lab work in 2-4 days with results to Dr. Goodrich Discharge Disposition: HOME SELF-CARE
[2021-09-19 11:45] VITALS: BMI 31.4
--- NOTE | 2021-09-19 13:02 | P.PN ---
Subjective Progress Note Date: 09/19/21 HISTORY OF PRESENT ILLNESS: This is a 76-year-old male with no signifcant past medical history. 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 We have been asked to see the patient in consultation for CHF. Patient examined at the bedside. Patient speaks [place]ian. His family is at the bedside translating for the patient. Patient apparently woke up at 11pm last night with shortness of breath, cough, and diaphoresis. The patient apparently tried to drink some water and relax but his symptoms got worse so he called EMS. The patient was started on IV lasix. He states his symptoms are improved at the time of examination. He currently denies chest pain or pressure. * EKG reveals sinus tachycardia with no signs of acute ischemia * Chest xray moderate pulmonary airspace edema which could be RDS or acute heart failure * Laboratory data: WBC 7.7. Hemoglobin 17. Platelet count 170. Sodium 137. Potassium 5.1. BUN 19. Creatinine 1.10. Lactic acid 4.2. Repeat 5.3. Troponin 0.025. 0.283. 0.574. * Current home cardiac medications include aspirin 81 mg daily 09/19/2021 Patient is status post cardiac catheterization revealing chronic total occlusion of RCA with extensive collaterals to the distal RCA. Patient examined this morning at the bedside. He denies chest pain or pressure. He denies shortness of breath. Vital signs are stable. Echocardiogram completed revealing ejection fraction 20-25% with global hypokinesis PHYSICAL EXAM: VITAL SIGNS: Reviewed. GENERAL: Well-developed in no acute distress. HEENT: Head is normocephalic. Pupils are equal, round. Sclerae anicteric. Mucous membranes of the mouth are moist. Neck supple. No JVD or thyromegaly LUNGS: Respirations even and unlabored. Lungs diminished to auscultation bilaterally. HEART: Regular rate and rhythm. S1 and S2 heard. ABDOMEN: Soft. Nondistended. Nontender. EXTREMITIES: Normal range of motion. No clubbing or cyanosis. Peripheral pulses intact. No lower extremity edema NEUROLOGIC: Awake and alert. Oriented x 3. ASSESSMENT: Non-STEMI, status post cardiac catheterization revealing chronic total occlusion of RCA with extensive collaterals to the distal RCA Acute heart failure with reduced EF Lactic acidosis Hyperglycemia, rule out diabetes Former nicotine dependence PLAN: Continue current cardiac medications Increase carvedilol to 6.25 mg twice a day Patient may be discharged home today from a cardiac standpoint with close outpatient follow up Nurse practitioner note has been reviewed by physician. Signing provider agrees with the documented findings, assessment, and plan of care. Objective - Vital Signs Vital signs: Vital Signs Temp 97.4 F L 09/19/21 08:00 Pulse 91 09/19/21 10:35 Resp 16 09/19/21 08:00 BP 121/69 09/19/21 08:00 Pulse Ox 95 09/19/21 08:00 FiO2 21 09/18/21 19:57 Intake & Output 09/18/21 09/19/21 09/19/21 18:59 06:59 18:59 Intake Total 1265 10 118 Balance 1265 10 118 Weight 85.6 kg Intake: IV 425 10 IV Fluid Continuation 1, 300 000 ml @ 0 mls/hr IV .STK -MED ONE Rx#:[id number] Invasive Line 1 10 Oral 840 118 Other: Voiding Method Toilet # Voids 2 - Labs CBC & Chem 7: 09/19/21 07:19 09/19/21 07:19 Labs: Abnormal Lab Results - Last 24 Hours (Table) 09/19/21 09/19/21 Range/Units 07:19 07:19 APTT 21.3 L (22.0-30.0) sec BUN 24 H (9-20) mg/dL Glucose 112 H (74-99) mg/dL
[2021-09-19] MEDS ORDERED: carvediloL 6.25 MG TAB PO SCH (17:30)
== END 2021-09-19 12:19 | disposition home health service (06) | DRG 280 ==
LOC: EC 03:27 → 3SCARD 05:03
PROVIDERS: ADMIT Internal Medicine; ATTEND Internal Medicine
PROC: 5A09357 Assistance with Respiratory Ventilation, Less than 24 Consecutive Hours, Continuous Positive Airway Pressure (ICD-10-PCS; 2021-09-17)
PROC: 4A023N7 Measurement of Cardiac Sampling and Pressure, Left Heart, Percutaneous Approach (ICD-10-PCS; principal; 2021-09-18 09:00)
PROC: B2111ZZ Fluoroscopy of Multiple Coronary Arteries using Low Osmolar Contrast (ICD-10-PCS; principal; 2021-09-18 09:00)
DX: I11.0 Hypertensive heart disease with heart failure (principal); I50.23 Acute on chronic systolic (congestive) heart failure; I21.A1 Myocardial infarction type 2; J96.01 Acute respiratory failure with hypoxia; E87.2 Acidosis; J44.1 Chronic obstructive pulmonary disease with (acute) exacerbation; I25.82 Chronic total occlusion of coronary artery; I25.10 Atherosclerotic heart disease of native coronary artery without angina pectoris; I16.0 Hypertensive urgency; R73.9 Hyperglycemia, unspecified; E78.5 Hyperlipidemia, unspecified; R73.03 Prediabetes; K21.9 Gastro-esophageal reflux disease without esophagitis; Z79.82 Long term (current) use of aspirin; Z79.899 Other long term (current) drug therapy; Z85.46 Personal history of malignant neoplasm of prostate; Z87.891 Personal history of nicotine dependence; Z82.49 Family history of ischemic heart disease and other diseases of the circulatory system
CPT/HCPCS: 36415; 71045; 80048; 80053; 80061; 83036; 83605; 83735; 83880; 84100; 84443; 84484; 85025; 85027; 85610; 85730; 93005; 93306; 93458; 94640; 94660; 94760; 96365; 96366; 96375; 99285

== ENCOUNTER → 2022-05-22 | Outpatient (CLI) | payer MEDICARE ==
[2022-05-22 18:30] LABS: ALT 30 U/L (10-49); AST 21 U/L (14-35); Albumin 4.3 g/dL (3.8-4.9); Albumin/Globulin Ratio 1.68 (1.60-3.17); Alkaline Phosphatase 48 U/L (41-126); BUN/Creat Ratio 18.98 Ratio (12.00-20.00); Blood Urea Nitrogen 17.1 mg/dL (9.0-27.0); Calcium 9.6 mg/dL (8.7-10.3); Carbon Dioxide 24.1 mmol/L (20.0-27.5); Chloride 105 mmol/L (96-109); Chol/HDL Ratio 3.57 Ratio; Globulin 2.6 g/dL (1.6-3.3); Glucose 109 mg/dL (70-110); LDL Cholesterol,Calculated 5.3 mg/dL (0.0-131.0); Potassium 4.5 mmol/L (3.5-5.5); Sodium 139 mmol/L (135-145); Total Protein 6.9 g/dL (6.2-8.2)
== END | disposition home or self-care (01) ==
LOC: LABWHC1 13:18
PROVIDERS: ATTEND Internal Medicine Clinical Cardiac Electrophysiology
DX: I25.10 Atherosclerotic heart disease of native coronary artery without angina pectoris (principal); I25.5 Ischemic cardiomyopathy; I73.9 Peripheral vascular disease, unspecified; I50.9 Heart failure, unspecified
CPT/HCPCS: 36415; 80053; 80061; 84439; 84443

== ENCOUNTER → 2022-07-16 | Outpatient (CLI) | payer MEDICARE | END | disposition home or self-care (01) | LOC: LABWHC1 11:07 → EDSTATUS 11:16 | PROVIDERS: ATTEND Family Medicine | DX: E11.9 Type 2 diabetes mellitus without complications (principal) | CPT/HCPCS: 36415; 83036 ==